=== PATIENT | female | born 1955 | race Caucasian/White ===

== ENCOUNTER → 2023-09-21 11:05 | Outpatient (REF) | payer MEDICARE, SELFPAY ==
[2023-09-21 12:53] LABS: Free T4 1.35 ng/dl (0.78-2.19)
[2023-09-21 13:06] LABS: TSH 0.13 uIU/ml (0.47-4.68)
== END ==
LOC: REG 11:05
PROVIDERS: ATTENDING PHYSICIAN Internal Medicine Endocrinology, Diabetes & Metabolism; FAMILY PHYSICIAN Family Medicine
DX: E03.9 Hypothyroidism, unspecified (principal)
CPT/HCPCS: 36415; 84439; 84443

== ENCOUNTER → 2023-11-10 09:42 | Outpatient (REF) | payer MEDICARE, SELFPAY | LOC: WDC 09:42 | PROVIDERS: ATTENDING PHYSICIAN Nurse Practitioner Family; FAMILY PHYSICIAN Family Medicine | DX: Z12.31 Encounter for screening mammogram for malignant neoplasm of breast (principal); Z78.0 Asymptomatic menopausal state | CPT/HCPCS: 77063; 77067; 77080 ==